=== PATIENT | male | born 1940 | race Two or more races ===

== ENCOUNTER → 2019-09-10 | Emergency (ER) | payer MEDICARE, OTHER ==
[~2019-09-10] VITALS: Ht 185.4 cm; Wt 63.5 kg
[~2019-09-10] MED LIST: CALCIUM GLUC 4.65meq/50ml D5AE 50 ML IV ONE; CALCIUM W/VIT D (600MG/400IU) TAB PO ONE; CALCIUM W/VIT D (600MG/400IU) TAB PO SCH; CEL100T PO; CLIN300C8 PO; ERGO1CAP6 PO; ESOM40CA39 PO; LEVO500T21 PO; LOSA-69 PO; TAM04C PO
[2019-09-10 11:54] LABS: Basophils # (auto) 0 10 ^3/uL (0-0.2); Basophils % (auto) 0.4 % (0.0-2.0); Eosinophils # (auto) 0.1 10 ^3/uL (0-0.8); Eosinophils % (auto) 1.8 % (0.0-7.0); Hematocrit 40.9 % (41.0-53.0); Hemoglobin 13.3 g/dL (13.5-17.5); Lymphocytes # (auto) 0.8 10 ^3/uL (0.4-5.4); Lymphocytes % (auto) 10.7 % (10.0-50.0); Mean Corpuscular Hgb Conc. 32.5 g/dL (32.0-36.0); Monocytes # (auto) 1.1 10 ^3/uL (0-1.3); Monocytes % (auto) 14.3 % (0.0-12.0); Neutrophils # (auto) 5.4 10 ^3/uL (1.6-8.6); Neutrophils % (auto) 72.8 % (37.0-80.0); Platelet Count (auto) 209 10^3/uL (140-450); Red Blood Cells 4.76 10^6/uL (4.5-5.90); Red Cell Distribution Width 14.3 % (11.8-14.3); White Blood Cell 7.4 10^3/uL (4.4-10.8)
[2019-09-10 12:14] LABS: Calcium 8.2 mg/dL (8.5-10.1); Potassium 4.1 mmol/L (3.5-5.1)
[2019-09-10 12:17] LABS: Albumin 3.7 g/dL (3.4-5.0); BUN/Creatinine Ratio 17.9
[2019-09-10 12:20] LABS: Bilirubin, Total 0.6 mg/dL (0.2-1.0); Total Protein 7.4 g/dL (6.4-8.2)
[2019-09-10 13:50] VITALS: BP 109/72
== END | disposition home or self-care (01) ==
LOC: EDUNIT# 11:19 → EDBD 11:22 → ER 11:22
DX: R07.0 Pain in throat (principal); I10 Essential (primary) hypertension; E11.9 Type 2 diabetes mellitus without complications; E78.5 Hyperlipidemia, unspecified; K21.9 Gastro-esophageal reflux disease without esophagitis; Z79.2 Long term (current) use of antibiotics; Z79.899 Other long term (current) drug therapy
CPT/HCPCS: 36415; 70490; 71045; 80053; 85025; 96365; 99285; J0610

== ENCOUNTER 2021-03-26 16:42 | Emergency (ER) | payer MEDICARE, OTHER ==
[~2021-03-26] VITALS: Ht 165.1 cm; Wt 56.7 kg
[~2021-03-26 16:42] MED LIST changes: -CALCIUM GLUC 4.65meq/50ml D5AE 50 ML IV ONE; -CALCIUM W/VIT D (600MG/400IU) TAB PO ONE; -CALCIUM W/VIT D (600MG/400IU) TAB PO SCH; -LEVO500T21 PO; +LEVO500T31 PO
[2021-03-26 17:39] VITALS: BP 123/67
== END 2021-03-26 18:13 | disposition home or self-care (01) ==
LOC: ER 16:42
DX: H65.02 Acute serous otitis media, left ear (principal); H61.21 Impacted cerumen, right ear; E11.9 Type 2 diabetes mellitus without complications; K21.9 Gastro-esophageal reflux disease without esophagitis; E78.5 Hyperlipidemia, unspecified; I10 Essential (primary) hypertension; Z85.818 Personal history of malignant neoplasm of other sites of lip, oral cavity, and pharynx; Z79.2 Long term (current) use of antibiotics; Z79.899 Other long term (current) drug therapy

== ENCOUNTER 2021-04-08 16:00 | Emergency (ER) | payer MEDICARE, OTHER ==
[~2021-04-08] VITALS: Ht 175.3 cm; Wt 72.6 kg
[2021-04-08 17:54] LABS: Basophils # (auto) 0.1 10 ^3/uL (0-0.2); Eosinophils # (auto) 0 10 ^3/uL (0-0.8)
[2021-04-08 17:56] LABS: Basophils % (auto) 0.3 % (0.0-2.0); Eosinophils % (auto) 0.1 % (0.0-7.0); Hematocrit 37.9 % (41.0-53.0); Lymphocytes # (auto) 0.6 10 ^3/uL (0.4-5.4); Lymphocytes % (auto) 3.5 % (10.0-50.0); Mean Corpuscular Hemoglobin 26.3 pg (28.0-32.0); Mean Corpuscular Hgb Conc. 31.8 g/dL (32.0-36.0); Mean Corpuscular Volume 82.9 fL (80.0-100.0); Monocytes # (auto) 1.3 10 ^3/uL (0-1.3); Monocytes % (auto) 7.1 % (0.0-12.0); Neutrophils # (auto) 16.1 10 ^3/uL (1.6-8.6); Nucleated Red Blood Cells % 0.1 %; Red Blood Cells 4.57 10^6/uL (4.5-5.90); White Blood Cell 18.1 10^3/uL (4.4-10.8)
[2021-04-08 18:07] LABS: Albumin 3.2 g/dL (3.4-5.0); Calcium 10.1 mg/dL (8.5-10.1); Potassium 5.1 mmol/L (3.5-5.1)
[2021-04-08 18:17] LABS: BUN/Creatinine Ratio 17.2; Bilirubin, Total 0.5 mg/dL (0.2-1.0); Total Protein 7.7 g/dL (6.4-8.2)
[2021-04-08 19:05] VITALS: BP 132/69
== END 2021-04-08 19:55 | disposition home or self-care (01) ==
LOC: ER 16:00
DX: R07.0 Pain in throat (principal); I10 Essential (primary) hypertension; E11.9 Type 2 diabetes mellitus without complications; K21.9 Gastro-esophageal reflux disease without esophagitis; E78.5 Hyperlipidemia, unspecified; Z85.818 Personal history of malignant neoplasm of other sites of lip, oral cavity, and pharynx; Z79.2 Long term (current) use of antibiotics; Z79.899 Other long term (current) drug therapy
CPT/HCPCS: 36415; 71045; 80053; 84484; 85025

== ENCOUNTER 2021-04-23 14:03 | Inpatient (IN) | payer MEDICARE, OTHER ==
[~2021-04-23] VITALS: Ht 152.4 cm; Wt 51.0 kg
[2021-04-23] MEDS ORDERED: SODIUM CHLORIDE 0.9% 500 ML IV ONE (14:45)
[2021-04-24] LABS: Basophils # (auto) 0.1 10 ^3/uL (0-0.2); Hematocrit 35.3 % (41.0-53.0); Hemoglobin 11.2 g/dL (13.5-17.5); Monocytes # (auto) 1.1 10 ^3/uL (0-1.3); Red Cell Distribution Width 15.5 % (11.8-14.3); White Blood Cell 15.6 10^3/uL (4.4-10.8)
[2021-04-24 00:02] LABS: Basophils % (auto) 0.6 % (0.0-2.0); Eosinophils # (auto) 0.6 10 ^3/uL (0-0.8); Eosinophils % (auto) 4.1 % (0.0-7.0); Lymphocytes % (auto) 6.6 % (10.0-50.0); Mean Corpuscular Hemoglobin 26.3 pg (28.0-32.0); Mean Corpuscular Hgb Conc. 31.8 g/dL (32.0-36.0); Mean Corpuscular Volume 82.9 fL (80.0-100.0); Monocytes % (auto) 7.1 % (0.0-12.0); Neutrophils # (auto) 12.7 10 ^3/uL (1.6-8.6); Neutrophils % (auto) 81.6 % (37.0-80.0); Red Blood Cells 4.25 10^6/uL (4.5-5.90)
[2021-04-24 00:19] LABS: Albumin 2.9 g/dL (3.4-5.0); Potassium 4.1 mmol/L (3.5-5.1)
[2021-04-24 00:26] LABS: Bilirubin, Total 0.4 mg/dL (0.2-1.0)
[2021-04-24] MEDS ORDERED: DOCUSATE SOD 100 MG CAP PO PRN (01:30)
[2021-04-24] MEDS ORDERED: cefTRIAXone 1GM/50ML D5W 50 ML IV ONE (01:30)
[2021-04-24] MEDS ORDERED: DEXTROSE (50%) 50ML SYRG IV PRN (01:30)
[2021-04-24] MEDS ORDERED: hydrALAZINE HCL 20 MG/ML VL IV PRN (01:45)
[2021-04-24] MEDS: SODIUM CHLORIDE 0.9% 1,000 ML IV SCH ×2 (02:09→18:25)
[2021-04-24 03:42] LABS: Urine Bacteria FEW /hpf (None Seen); Urine Blood Negative /uL (Negative); Urine Hyaline Cast FEW /lpf (0 - 2); Urine Mucus FEW (None Seen); Urine WBC 3 /hpf (0 - 3)
[2021-04-24 05:09] LABS: Basophils # (auto) 0.1 10 ^3/uL (0-0.2); Eosinophils # (auto) 0.6 10 ^3/uL (0-0.8); Lymphocytes # (auto) 0.8 10 ^3/uL (0.4-5.4); Mean Corpuscular Volume 82.7 fL (80.0-100.0); Monocytes # (auto) 0.9 10 ^3/uL (0-1.3)
[2021-04-24 05:11] LABS: Basophils % (auto) 0.5 % (0.0-2.0); Eosinophils % (auto) 3.6 % (0.0-7.0); Hematocrit 36.4 % (41.0-53.0); Hemoglobin 11.6 g/dL (13.5-17.5); Lymphocytes % (auto) 5.4 % (10.0-50.0); Mean Corpuscular Hemoglobin 26.3 pg (28.0-32.0); Mean Corpuscular Hgb Conc. 31.8 g/dL (32.0-36.0); Monocytes % (auto) 5.6 % (0.0-12.0); Neutrophils # (auto) 13.2 10 ^3/uL (1.6-8.6); Neutrophils % (auto) 84.9 % (37.0-80.0); Red Blood Cells 4.41 10^6/uL (4.5-5.90); Red Cell Distribution Width 15.3 % (11.8-14.3); White Blood Cell 15.5 10^3/uL (4.4-10.8)
[2021-04-24] MEDS ORDERED: NITROGLYCERIN 0.4 MG SL TAB SL PRN (05:30)
[2021-04-24 05:32] LABS: Albumin 2.9 g/dL (3.4-5.0); BUN/Creatinine Ratio 37.1; Calcium 10.4 mg/dL (8.5-10.1)
[2021-04-24 05:35] LABS: Bilirubin, Total 0.3 mg/dL (0.2-1.0); Total Protein 7.2 g/dL (6.4-8.2)
[2021-04-24] MEDS: HYDROcodone-ACET 5/325MG TAB PO PRN (06:20)
[2021-04-24] MEDS: InsuLIN REG 1unit/0.01ml Soln (100units/ml) SC SCH ×3 (07:00→17:00)
[2021-04-24] MEDS: ACCU-CHEK COMFORT CURVE STRIP VI SCH ×3 (07:29→17:46)
[2021-04-24] MEDS: cefTRIAXone 1GM/50ML D5W 50 ML IV SCH (12:26)
[2021-04-24] MEDS: HEPARIN SODIUM (PORCINE) 5000 UNITS/ML 1ML VIAL SC SCH ×2 (12:34→22:22)
[2021-04-24] MEDS: FAMOTIDINE (10MG/ML) 2ML VL IV SCH (12:35)
[2021-04-24] MEDS: ASCORBIC ACID 500 MG TAB PO SCH ×2 (12:35→22:06)
[2021-04-24] MEDS: ZINC SULFATE 220mg CAP or TAB PO SCH (12:35)
[2021-04-24] MEDS: ASPirin 81 mg TAB PO SCH (12:35)
[2021-04-24] MEDS: MULTIPLE VITAMIN TAB PO SCH (12:36)
[2021-04-24] MEDS ORDERED: CLINDAMYCIN 300MG IV 50 ML IV ONE (14:45)
[2021-04-24 17:00] VITALS: BP 112/62
[2021-04-24 22:00] VITALS: BP 107/66
[2021-04-24] MEDS: CLINDAMYCIN 300MG IV 50 ML IV SCH (22:06)
[2021-04-24] MEDS: ACETAMINOPHEN 325 MG TAB PO PRN (22:25)
[2021-04-25 05:00] VITALS: BP 102/68
[2021-04-25] MEDS: CLINDAMYCIN 300MG IV 50 ML IV SCH ×3 (06:53→21:04)
[2021-04-25] MEDS: InsuLIN REG 1unit/0.01ml Soln (100units/ml) SC SCH ×4 (07:00→21:14)
[2021-04-25 07:21] LABS: Basophils # (auto) 0.1 10 ^3/uL (0-0.2); Eosinophils # (auto) 0.6 10 ^3/uL (0-0.8); Hemoglobin 10.1 g/dL (13.5-17.5)
[2021-04-25 07:23] LABS: Basophils % (auto) 0.8 % (0.0-2.0); Eosinophils % (auto) 4.4 % (0.0-7.0); Lymphocytes # (auto) 0.8 10 ^3/uL (0.4-5.4); Mean Corpuscular Hgb Conc. 32.5 g/dL (32.0-36.0); Mean Corpuscular Volume 82.9 fL (80.0-100.0); Monocytes % (auto) 7.6 % (0.0-12.0); Neutrophils % (auto) 81.2 % (37.0-80.0); Red Blood Cells 3.74 10^6/uL (4.5-5.90); Red Cell Distribution Width 15.8 % (11.8-14.3); White Blood Cell 13.5 10^3/uL (4.4-10.8)
[2021-04-25 07:29] LABS: Albumin 2.3 g/dL (3.4-5.0); Calcium 9.8 mg/dL (8.5-10.1); Potassium 4.4 mmol/L (3.5-5.1)
[2021-04-25 07:34] LABS: Bilirubin, Total 0.4 mg/dL (0.2-1.0)
[2021-04-25 08:00] VITALS: BP 134/72
[2021-04-25 09:00] VITALS: BP 134/72
[2021-04-25] MEDS: FAMOTIDINE (10MG/ML) 2ML VL IV SCH (09:02)
[2021-04-25] MEDS: cefTRIAXone 1GM/50ML D5W 50 ML IV SCH (09:02)
[2021-04-25] MEDS: ASCORBIC ACID 500 MG TAB PO SCH ×2 (09:03→21:04)
[2021-04-25] MEDS: ZINC SULFATE 220mg CAP or TAB PO SCH (09:03)
[2021-04-25] MEDS: MULTIPLE VITAMIN TAB PO SCH (09:03)
[2021-04-25] MEDS: ASPirin 81 mg TAB PO SCH (09:03)
[2021-04-25] MEDS: HEPARIN SODIUM (PORCINE) 5000 UNITS/ML 1ML VIAL SC SCH (09:04)
[2021-04-25] MEDS: ACCU-CHEK COMFORT CURVE STRIP VI SCH ×4 (09:24→21:13)
[2021-04-25 13:00] VITALS: BP 129/68
[2021-04-25 17:00] VITALS: BP 125/70
[2021-04-25] MEDS: SODIUM CHLORIDE 0.9% 1,000 ML IV SCH (18:28)
[2021-04-25] MEDS: MORPHINE SULFATE INJECTION 2 MG/ML SYRG IV PRN (21:03)
[2021-04-25 22:00] VITALS: BP 140/86
[2021-04-26] MEDS: HEPARIN SODIUM (PORCINE) 5000 UNITS/ML 1ML VIAL SC SCH ×3 (02:43→23:02)
[2021-04-26] MEDS: SODIUM CHLORIDE 0.9% 1,000 ML IV SCH ×3 (03:30→20:10)
[2021-04-26 05:00] VITALS: BP 131/83
[2021-04-26] MEDS: HYDROcodone-ACET 5/325MG TAB PO PRN (06:02)
[2021-04-26] MEDS: InsuLIN REG 1unit/0.01ml Soln (100units/ml) SC SCH ×3 (06:03→17:00)
[2021-04-26] MEDS: CLINDAMYCIN 300MG IV 50 ML IV SCH ×3 (06:12→23:02)
[2021-04-26 07:20] LABS: Basophils # (auto) 0.1 10 ^3/uL (0-0.2); Basophils % (auto) 0.5 % (0.0-2.0); Hematocrit 31.5 % (41.0-53.0); Hemoglobin 10.2 g/dL (13.5-17.5); Neutrophils # (auto) 12.7 10 ^3/uL (1.6-8.6)
[2021-04-26 07:24] LABS: Eosinophils # (auto) 0.4 10 ^3/uL (0-0.8); Eosinophils % (auto) 2.9 % (0.0-7.0); Lymphocytes # (auto) 0.7 10 ^3/uL (0.4-5.4); Lymphocytes % (auto) 4.8 % (10.0-50.0); Mean Corpuscular Hemoglobin 26.7 pg (28.0-32.0); Mean Corpuscular Hgb Conc. 32.3 g/dL (32.0-36.0); Mean Corpuscular Volume 82.7 fL (80.0-100.0); Monocytes # (auto) 1.2 10 ^3/uL (0-1.3); Monocytes % (auto) 7.7 % (0.0-12.0); Neutrophils % (auto) 84.1 % (37.0-80.0); Red Cell Distribution Width 15.1 % (11.8-14.3); White Blood Cell 15.1 10^3/uL (4.4-10.8)
[2021-04-26 07:35] LABS: Calcium 9.8 mg/dL (8.5-10.1); Potassium 4.1 mmol/L (3.5-5.1)
[2021-04-26 07:37] LABS: BUN/Creatinine Ratio 19.5
[2021-04-26 09:00] VITALS: BP 90/51
[2021-04-26] MEDS: cefTRIAXone 1GM/50ML D5W 50 ML IV SCH (09:00)
[2021-04-26] MEDS: MULTIPLE VITAMIN TAB PO SCH (10:00)
[2021-04-26] MEDS: ZINC SULFATE 220mg CAP or TAB PO SCH (10:00)
[2021-04-26] MEDS: FAMOTIDINE (10MG/ML) 2ML VL IV SCH (10:00)
[2021-04-26] MEDS: ASCORBIC ACID 500 MG TAB PO SCH (10:00)
[2021-04-26] MEDS: ASPirin 81 mg TAB PO SCH (10:00)
[2021-04-26] MEDS ORDERED: PPN PER PHARMACY 0 ML IV SCH (11:30)
[2021-04-26] MEDS: ACCU-CHEK COMFORT CURVE STRIP VI SCH ×5 (11:30→23:21)
[2021-04-26 12:20] LABS: Albumin 2.2 g/dL (3.4-5.0); Magnesium 1.8 mg/dL (1.6-2.6)
[2021-04-26 12:26] LABS: Alanine Aminotransferase 14 U/L (16-61); Alkaline Phosphatase 91 U/L (45-117); Aspartate Aminotransferase 19 U/L (15-37); Bilirubin, Direct < 0.1 mg/dL (0-0.2); Bilirubin, Total 0.3 mg/dL (0.2-1.0); Phosphorus 2.8 mg/dL (2.5-4.90); Pre Albumin 7.4 mg/dL (20.0-40.0); Triglycerides 89 mg/dL (< 150)
[2021-04-26 12:30] LABS: INR 1.1 (0.9-1.15); Partial Thromboplastin Time 27.4 sec (23.6-33.0)
[2021-04-26 13:00] VITALS: BP 124/72
[2021-04-26 17:00] VITALS: BP 92/54
[2021-04-26] MEDS ORDERED: PPN PER PHARMACY IV NR ×8 (20:00)
[2021-04-26 22:00] VITALS: BP 93/51
[2021-04-26] MEDS: ACETAMINOPHEN 325 MG TAB PO PRN (23:20)
[2021-04-27] MEDS ORDERED: DEXTROSE (50%) 50ML SYRG IV SCH
[2021-04-27] MEDS: InsuLIN REG 1unit/0.01ml Soln (100units/ml) SC SCH ×6 (00:50→23:44)
[2021-04-27 05:00] VITALS: BP 112/52
[2021-04-27] MEDS: ACCU-CHEK COMFORT CURVE STRIP VI SCH ×4 (05:56→23:44)
[2021-04-27] MEDS: CLINDAMYCIN 300MG IV 50 ML IV SCH ×3 (06:30→21:11)
[2021-04-27 06:56] LABS: Albumin 2.2 g/dL (3.4-5.0); Calcium 9.9 mg/dL (8.5-10.1); Magnesium 2.6 mg/dL (1.6-2.6); Potassium 3.9 mmol/L (3.5-5.1)
[2021-04-27 06:58] LABS: BUN/Creatinine Ratio 15.4; Bilirubin, Total 0.4 mg/dL (0.2-1.0); Phosphorus 1.9 mg/dL (2.5-4.90); Total Protein 5.9 g/dL (6.4-8.2)
[2021-04-27 09:04] VITALS: BP 132/70
[2021-04-27] MEDS ORDERED: SODIUM PHOSP 20MEQ(15MMOL) IN NS 100 ML IV ONE (10:45)
[2021-04-27] MEDS: FAMOTIDINE (10MG/ML) 2ML VL IV SCH (11:08)
[2021-04-27] MEDS: cefTRIAXone 1GM/50ML D5W 50 ML IV SCH (11:08)
[2021-04-27] MEDS: HEPARIN SODIUM (PORCINE) 5000 UNITS/ML 1ML VIAL SC SCH ×2 (11:11→21:12)
[2021-04-27] MEDS ORDERED: MIDAZOLAM HCL 2MG/2ML 2ml VIAL (1mg/ml) IV ONE (12:30)
[2021-04-27] MEDS ORDERED: fentaNYL CITRATE 100 MCG/2 ML VL IV ONE (12:30)
[2021-04-27] MEDS: SODIUM CHLORIDE 0.9% 1,000 ML IV SCH ×2 (12:50→21:07)
[2021-04-27 12:55] VITALS: BP 100/63
[2021-04-27 16:29] VITALS: BP 123/64
[2021-04-27] MEDS ORDERED: PPN PER PHARMACY IV NR ×7 (20:00)
[2021-04-27 22:00] VITALS: BP 130/74
[2021-04-28 05:00] VITALS: BP 155/83
[2021-04-28] MEDS: CLINDAMYCIN 300MG IV 50 ML IV SCH ×3 (05:15→21:24)
[2021-04-28] MEDS: ACCU-CHEK COMFORT CURVE STRIP VI SCH ×3 (05:21→18:13)
[2021-04-28] MEDS: InsuLIN REG 1unit/0.01ml Soln (100units/ml) SC SCH ×3 (05:23→18:13)
[2021-04-28 06:54] LABS: Basophils # (auto) 0.1 10 ^3/uL (0-0.2); Basophils % (auto) 0.3 % (0.0-2.0); Eosinophils # (auto) 0.2 10 ^3/uL (0-0.8); Eosinophils % (auto) 1.1 % (0.0-7.0); Hematocrit 30.5 % (41.0-53.0); Hemoglobin 10.2 g/dL (13.5-17.5); Lymphocytes # (auto) 0.9 10 ^3/uL (0.4-5.4); Lymphocytes % (auto) 5.4 % (10.0-50.0); Mean Corpuscular Hemoglobin 27.4 pg (28.0-32.0); Mean Corpuscular Hgb Conc. 33.4 g/dL (32.0-36.0); Monocytes # (auto) 1.6 10 ^3/uL (0-1.3); Monocytes % (auto) 9.8 % (0.0-12.0); Neutrophils # (auto) 13.4 10 ^3/uL (1.6-8.6); Neutrophils % (auto) 83.4 % (37.0-80.0); Nucleated Red Blood Cells % 0.1 %; Red Blood Cells 3.72 10^6/uL (4.5-5.90); Red Cell Distribution Width 15.2 % (11.8-14.3)
[2021-04-28 07:15] LABS: Calcium 8.7 mg/dL (8.5-10.1); Magnesium 2.3 mg/dL (1.6-2.6); Potassium 3.3 mmol/L (3.5-5.1)
[2021-04-28 07:19] LABS: BUN/Creatinine Ratio 14.1; Bilirubin, Total 0.4 mg/dL (0.2-1.0); Phosphorus 1.8 mg/dL (2.5-4.90); Total Protein 5.8 g/dL (6.4-8.2)
[2021-04-28] MEDS ORDERED: POTASSIUM PHOSPHATE 44 MEQ in D5W 5% 250 ML IV ONE (08:45)
[2021-04-28 09:20] VITALS: BP 113/71
[2021-04-28] MEDS: FAMOTIDINE (10MG/ML) 2ML VL IV SCH (09:33)
[2021-04-28] MEDS: cefTRIAXone 1GM/50ML D5W 50 ML IV SCH (09:34)
[2021-04-28] MEDS: HEPARIN SODIUM (PORCINE) 5000 UNITS/ML 1ML VIAL SC SCH ×2 (09:37→21:24)
[2021-04-28] MEDS ORDERED: levoFLOXacin 500MG 100 ML IV ONE (11:00)
[2021-04-28] MEDS ORDERED: POTASSIUM CHLORIDE 40 MEQ, LIDOCAINE 1% (LOCAL ANESTH.) 4 ML in SODIUM CHL 0.9% 250 ML IV ONE (11:00)
[2021-04-28] MEDS: ONDANSETRON HCL 4 MG/2 ML VIAL IV PRN (11:37)
[2021-04-28 13:00] VITALS: BP 136/75
[2021-04-28] MEDS: SODIUM CHLORIDE 0.9% 1,000 ML IV SCH (16:16)
[2021-04-28] MEDS: MORPHINE SULFATE INJECTION 2 MG/ML SYRG IV PRN (16:22)
[2021-04-28 17:06] VITALS: BP 106/57
[2021-04-28 17:27] VITALS: BP 107/57
[2021-04-28] MEDS ORDERED: SODIUM CHLORIDE 0.9% 1,000 ML IV SCH (20:00)
[2021-04-28] MEDS ORDERED: PPN PER PHARMACY IV NR ×9 (20:00)
[2021-04-28 22:00] VITALS: BP 101/58
[2021-04-29] MEDS: InsuLIN REG 1unit/0.01ml Soln (100units/ml) SC SCH ×4 (01:01→18:17)
[2021-04-29 05:00] VITALS: BP 103/54
[2021-04-29 05:15] LABS: Basophils # (auto) 0 10 ^3/uL (0-0.2); Basophils % (auto) 0.3 % (0.0-2.0); Eosinophils # (auto) 0.3 10 ^3/uL (0-0.8); Eosinophils % (auto) 2.2 % (0.0-7.0); Hematocrit 29.3 % (41.0-53.0); Hemoglobin 9.8 g/dL (13.5-17.5); Lymphocytes # (auto) 0.7 10 ^3/uL (0.4-5.4); Lymphocytes % (auto) 4.7 % (10.0-50.0); Mean Corpuscular Hemoglobin 27.3 pg (28.0-32.0); Mean Corpuscular Hgb Conc. 33.5 g/dL (32.0-36.0); Mean Corpuscular Volume 81.4 fL (80.0-100.0); Monocytes # (auto) 1.4 10 ^3/uL (0-1.3); Neutrophils # (auto) 12.8 10 ^3/uL (1.6-8.6); Neutrophils % (auto) 83.8 % (37.0-80.0); Red Blood Cells 3.59 10^6/uL (4.5-5.90); Red Cell Distribution Width 15.5 % (11.8-14.3); White Blood Cell 15.3 10^3/uL (4.4-10.8)
[2021-04-29] MEDS: CLINDAMYCIN 300MG IV 50 ML IV SCH ×3 (05:20→21:55)
[2021-04-29 05:39] LABS: INR 1.23 (0.9-1.15); Partial Thromboplastin Time 32.1 sec (23.6-33.0)
[2021-04-29 05:56] LABS: Albumin 1.9 g/dL (3.4-5.0); BUN/Creatinine Ratio 20.3; Bilirubin, Total 0.4 mg/dL (0.2-1.0); Calcium 8.9 mg/dL (8.5-10.1); Magnesium 2.4 mg/dL (1.6-2.6); Phosphorus 2.4 mg/dL (2.5-4.90); Total Protein 6.1 g/dL (6.4-8.2)
[2021-04-29] MEDS: ACCU-CHEK COMFORT CURVE STRIP VI SCH ×4 (06:00→18:18)
[2021-04-29 07:24] LABS: Potassium 2.9 mmol/L (3.5-5.1)
[2021-04-29] MEDS: SOD CHL 0.9%/ KCL 20MEQ 1,000 ML IV SCH (08:15)
[2021-04-29 08:38] VITALS: BP 122/72
[2021-04-29] MEDS ORDERED: POTASSIUM PHOSPHATE 44 MEQ in D5W 5% 250 ML IV ONE (09:30)
[2021-04-29] MEDS: FAMOTIDINE (10MG/ML) 2ML VL IV SCH (10:00)
[2021-04-29] MEDS: HEPARIN SODIUM (PORCINE) 5000 UNITS/ML 1ML VIAL SC SCH ×2 (10:00→21:53)
[2021-04-29] MEDS: levoFLOXacin 500MG 100 ML IV SCH (10:00)
[2021-04-29] MEDS ORDERED: LIDOCAINE 2%HCL (LOCAL ANESTH.) INJ 20ML MDV ONE (10:02)
[2021-04-29] MEDS ORDERED: MIDAZOLAM HCL 2MG/2ML 2ml VIAL (1mg/ml) ONE (10:09)
[2021-04-29] MEDS ORDERED: fentaNYL CITRATE 100 MCG/2 ML VL ONE (10:10)
[2021-04-29] MEDS ORDERED: POTASSIUM CHLORIDE 60 MEQ, LIDOCAINE 1% (LOCAL ANESTH.) 6 ML in SODIUM CHL 0.9% 500 ML IV ONE (10:45)
[2021-04-29] MEDS: Ensure HIGH Protein Chocolate 8oz Bottle PO SCH ×2 (11:51→14:52)
[2021-04-29] MEDS ORDERED: Ensure HIGH Protein Chocolate 8oz Bottle PO SCH (12:00)
[2021-04-29 13:00] VITALS: BP 105/53
[2021-04-29 17:00] VITALS: BP 107/58
[2021-04-29] MEDS: Glucerna Carbsteady SHAKE Stawberry 8oz PO SCH (18:17)
[2021-04-29] MEDS ORDERED: PPN PER PHARMACY IV NR ×8 (20:00)
[2021-04-29 22:00] VITALS: BP 140/66
[2021-04-29] MEDS: ACETAMINOPHEN 650 mg PER 20.3 mL UD GT PRN (22:14)
[2021-04-30] MEDS: ACCU-CHEK COMFORT CURVE STRIP VI SCH ×4 (00:04→18:00)
[2021-04-30] MEDS: InsuLIN REG 1unit/0.01ml Soln (100units/ml) SC SCH ×4 (00:12→18:00)
[2021-04-30] MEDS: SOD CHL 0.9%/ KCL 20MEQ 1,000 ML IV SCH ×2 (04:15→20:35)
[2021-04-30 05:00] VITALS: BP 141/74
[2021-04-30] MEDS: CLINDAMYCIN 300MG IV 50 ML IV SCH (05:47)
[2021-04-30 05:50] LABS: Calcium 8.7 mg/dL (8.5-10.1); Potassium 3.6 mmol/L (3.5-5.1)
[2021-04-30 06:01] LABS: Albumin 1.7 g/dL (3.4-5.0); BUN/Creatinine Ratio 26.9; Bilirubin, Total 0.4 mg/dL (0.2-1.0); Magnesium 1.8 mg/dL (1.6-2.6); Phosphorus 2.1 mg/dL (2.5-4.90); Total Protein 5.4 g/dL (6.4-8.2)
[2021-04-30] MEDS: Glucerna Carbsteady SHAKE Stawberry 8oz PO SCH ×3 (08:00→18:00)
[2021-04-30 09:00] VITALS: BP 149/76
[2021-04-30] MEDS: HEPARIN SODIUM (PORCINE) 5000 UNITS/ML 1ML VIAL SC SCH ×2 (10:00→22:46)
[2021-04-30] MEDS: levoFLOXacin 500MG 100 ML IV SCH (10:00)
[2021-04-30] MEDS: FAMOTIDINE (10MG/ML) 2ML VL IV SCH (10:00)
[2021-04-30] MEDS ORDERED: POTASSIUM PHOSPHATE 44 MEQ in D5W 5% 250 ML IV ONE (11:00)
[2021-04-30] MEDS ORDERED: POTASSIUM PHOSPHATE 22 MEQ in SODIUM CHL 0.9% 100 ML IV ONE (11:00)
[2021-04-30] MEDS: ACETAMINOPHEN 650 mg PER 20.3 mL UD GT PRN (12:17)
[2021-04-30 13:00] VITALS: BP 116/64
[2021-04-30 16:50] VITALS: BP 104/60
[2021-04-30] MEDS ORDERED: PPN PER PHARMACY IV NR ×7 (20:00)
[2021-04-30] MEDS ORDERED: HEPARIN SODIUM (PORCINE) 5000 UNITS/ML 1ML VIAL ONE (20:39)
[2021-04-30 22:04] VITALS: BP 107/75
[2021-05-01] MEDS: ACCU-CHEK COMFORT CURVE STRIP VI SCH ×5 (00:20→22:19)
[2021-05-01] MEDS: InsuLIN REG 1unit/0.01ml Soln (100units/ml) SC SCH ×4 (01:25→16:58)
[2021-05-01 05:01] VITALS: BP 142/85
[2021-05-01] MEDS: Glucerna Carbsteady SHAKE Stawberry 8oz PO SCH ×3 (08:00→16:58)
[2021-05-01 09:00] VITALS: BP 148/74
[2021-05-01] MEDS: levoFLOXacin 500MG 100 ML IV SCH (09:57)
[2021-05-01] MEDS: FAMOTIDINE (10MG/ML) 2ML VL IV SCH (09:57)
[2021-05-01 10:11] LABS: Albumin 2.2 g/dL (3.4-5.0); Calcium 9.5 mg/dL (8.5-10.1); Magnesium 2.4 mg/dL (1.6-2.6); Potassium 3.2 mmol/L (3.5-5.1)
[2021-05-01] MEDS: HEPARIN SODIUM (PORCINE) 5000 UNITS/ML 1ML VIAL SC SCH ×2 (10:14→22:19)
[2021-05-01 10:15] LABS: BUN/Creatinine Ratio 19.7; Bilirubin, Total 0.5 mg/dL (0.2-1.0); Phosphorus 2.2 mg/dL (2.5-4.90); Total Protein 6.4 g/dL (6.4-8.2)
[2021-05-01] MEDS ORDERED: POTASSIUM PHOSPHATE 44 MEQ in D5W 5% 250 ML IV ONE (11:00)
[2021-05-01 13:00] VITALS: BP 113/61
[2021-05-01 17:00] VITALS: BP 108/60
[2021-05-01] MEDS: ALBUTEROL SULF 2.5 MG/0.5ML(0.5%) NEB SOLN NEB SCH (18:56)
[2021-05-01] MEDS: ACETYLCYSTEINE 10 %(100MG/ML) SOL 4ML NEB SCH ×2 (18:57→18:58)
[2021-05-01 20:00] VITALS: BP 117/71
[2021-05-01] MEDS ORDERED: PPN PER PHARMACY IV NR ×8 (20:00)
[2021-05-01] MEDS: SOD CHL 0.9%/ KCL 20MEQ 1,000 ML IV SCH (22:17)
[2021-05-02] MEDS: ACETYLCYSTEINE 10 %(100MG/ML) SOL 4ML NEB SCH ×4 (01:10→19:02)
[2021-05-02] MEDS: ALBUTEROL SULF 2.5 MG/0.5ML(0.5%) NEB SOLN NEB SCH ×4 (01:10→19:02)
[2021-05-02 05:20] VITALS: BP 135/88
[2021-05-02 05:48] LABS: Albumin 1.9 g/dL (3.4-5.0); BUN/Creatinine Ratio 18.6; Calcium 9.4 mg/dL (8.5-10.1); Magnesium 1.9 mg/dL (1.6-2.6); Potassium 3.4 mmol/L (3.5-5.1)
[2021-05-02 05:51] LABS: Bilirubin, Total 0.4 mg/dL (0.2-1.0); Total Protein 6.2 g/dL (6.4-8.2)
[2021-05-02] MEDS: ACCU-CHEK COMFORT CURVE STRIP VI SCH ×4 (06:15→23:40)
[2021-05-02] MEDS: InsuLIN REG 1unit/0.01ml Soln (100units/ml) SC SCH ×5 (06:41→23:43)
[2021-05-02] MEDS: Glucerna Carbsteady SHAKE Stawberry 8oz PO SCH ×3 (08:00→16:34)
[2021-05-02 09:00] VITALS: BP 156/81
[2021-05-02] MEDS: FAMOTIDINE (10MG/ML) 2ML VL IV SCH (09:30)
[2021-05-02] MEDS: levoFLOXacin 500MG 100 ML IV SCH (09:30)
[2021-05-02] MEDS: HEPARIN SODIUM (PORCINE) 5000 UNITS/ML 1ML VIAL SC SCH ×2 (09:54→21:29)
[2021-05-02] MEDS ORDERED: POTASSIUM PHOSPHATE 44 MEQ in D5W 5% 250 ML IV ONE (11:30)
[2021-05-02 11:45] VITALS: BP 123/56
[2021-05-02] MEDS: ACETAMINOPHEN 650 mg PER 20.3 mL UD GT PRN (13:35)
[2021-05-02 16:35] VITALS: BP 93/51
[2021-05-02] MEDS: MORPHINE SULFATE INJECTION 2 MG/ML SYRG IV PRN ×2 (16:45→21:56)
[2021-05-02] MEDS: PPN PER PHARMACY IV NR ×8 (20:54)
[2021-05-02 22:00] VITALS: BP 101/66
[2021-05-02] MEDS: SOD CHL 0.9%/ KCL 20MEQ 1,000 ML IV SCH (23:35)
[2021-05-03] MEDS: ALBUTEROL SULF 2.5 MG/0.5ML(0.5%) NEB SOLN NEB SCH ×4 (00:31→18:50)
[2021-05-03] MEDS: MORPHINE SULFATE INJECTION 2 MG/ML SYRG IV PRN ×2 (03:34→10:34)
[2021-05-03 04:12] VITALS: BP 132/72
[2021-05-03] MEDS: ACETAMINOPHEN 650 mg PER 20.3 mL UD GT PRN ×3 (04:55→21:57)
[2021-05-03] MEDS: ACETYLCYSTEINE 10 %(100MG/ML) SOL 4ML NEB SCH ×4 (06:00→18:50)
[2021-05-03] MEDS: InsuLIN REG 1unit/0.01ml Soln (100units/ml) SC SCH ×4 (06:00→23:36)
[2021-05-03 06:03] LABS: Potassium 4.2 mmol/L (3.5-5.1)
[2021-05-03] MEDS: ACCU-CHEK COMFORT CURVE STRIP VI SCH ×4 (06:04→23:36)
[2021-05-03 06:12] LABS: BUN/Creatinine Ratio 27.3; Bilirubin, Total 0.4 mg/dL (0.2-1.0); Magnesium 2.8 mg/dL (1.6-2.6); Phosphorus 3.2 mg/dL (2.5-4.90); Total Protein 5.7 g/dL (6.4-8.2)
[2021-05-03 08:49] VITALS: BP 100/56
[2021-05-03] MEDS ORDERED: HEPARIN SODIUM (PORCINE) 5000 UNITS/ML 1ML VIAL ONE (09:37)
[2021-05-03] MEDS: Glucerna Carbsteady SHAKE Stawberry 8oz PO SCH ×3 (09:39→17:05)
[2021-05-03] MEDS: levoFLOXacin 500MG 100 ML IV SCH (09:39)
[2021-05-03] MEDS: FAMOTIDINE (10MG/ML) 2ML VL IV SCH (09:39)
[2021-05-03] MEDS: HEPARIN SODIUM (PORCINE) 5000 UNITS/ML 1ML VIAL SC SCH ×2 (09:48→21:56)
[2021-05-03 13:00] VITALS: BP 118/76
[2021-05-03 17:02] VITALS: BP 100/60
[2021-05-03] MEDS: PPN PER PHARMACY IV NR ×8 (19:59)
[2021-05-03 22:00] VITALS: BP 110/68
[2021-05-04] MEDS: PPN PER PHARMACY IV NR ×18 (00:05→19:49)
[2021-05-04] MEDS: ALBUTEROL SULF 2.5 MG/0.5ML(0.5%) NEB SOLN NEB SCH ×4 (00:55→19:26)
[2021-05-04] MEDS: ACETYLCYSTEINE 10 %(100MG/ML) SOL 4ML NEB SCH ×4 (00:55→19:26)
[2021-05-04] MEDS: SOD CHL 0.9%/ KCL 20MEQ 1,000 ML IV SCH ×2 (02:54→21:27)
[2021-05-04 04:56] VITALS: BP 136/67
[2021-05-04] MEDS: ACCU-CHEK COMFORT CURVE STRIP VI SCH ×3 (05:51→18:00)
[2021-05-04] MEDS: InsuLIN REG 1unit/0.01ml Soln (100units/ml) SC SCH ×3 (05:52→18:00)
[2021-05-04 06:05] LABS: Calcium 9.2 mg/dL (8.5-10.1); Magnesium 3.1 mg/dL (1.6-2.6); Potassium 4.2 mmol/L (3.5-5.1)
[2021-05-04 06:10] LABS: BUN/Creatinine Ratio 23.7; Bilirubin, Total 0.3 mg/dL (0.2-1.0); Phosphorus 2.4 mg/dL (2.5-4.90)
[2021-05-04] MEDS: ACETAMINOPHEN 650 mg PER 20.3 mL UD GT PRN (07:55)
[2021-05-04] MEDS: Glucerna Carbsteady SHAKE Stawberry 8oz PO SCH ×3 (08:00→18:00)
[2021-05-04] MEDS ORDERED: SODIUM PHOSP 20MEQ(15MMOL) IN NS 100 ML IV ONE (08:30)
[2021-05-04 09:22] VITALS: BP 114/57
[2021-05-04] MEDS: HEPARIN SODIUM (PORCINE) 5000 UNITS/ML 1ML VIAL SC SCH ×2 (10:22→21:49)
[2021-05-04] MEDS: levoFLOXacin 500MG 100 ML IV SCH (10:23)
[2021-05-04] MEDS: FAMOTIDINE (10MG/ML) 2ML VL IV SCH (10:23)
[2021-05-04] MEDS: ONDANSETRON HCL 4 MG/2 ML VIAL IV PRN (10:39)
[2021-05-04] MEDS: MORPHINE SULFATE INJECTION 2 MG/ML SYRG IV PRN (10:41)
[2021-05-04 12:40] VITALS: BP 81/46
[2021-05-04 16:26] VITALS: BP 86/54
[2021-05-04] MEDS ORDERED: PPN PER PHARMACY IV NR ×8 (20:00)
[2021-05-04 22:00] VITALS: BP 133/68
[2021-05-05] MEDS: ALBUTEROL SULF 2.5 MG/0.5ML(0.5%) NEB SOLN NEB SCH ×5 (00:25→23:50)
[2021-05-05] MEDS: ACETYLCYSTEINE 10 %(100MG/ML) SOL 4ML NEB SCH ×5 (00:25→23:50)
[2021-05-05] MEDS: ACCU-CHEK COMFORT CURVE STRIP VI SCH ×4 (01:28→17:26)
[2021-05-05] MEDS: MORPHINE SULFATE INJECTION 2 MG/ML SYRG IV PRN ×2 (01:29→10:15)
[2021-05-05 05:31] VITALS: BP 116/65
[2021-05-05 05:36] LABS: Albumin 1.9 g/dL (3.4-5.0); Calcium 8.8 mg/dL (8.5-10.1); Magnesium 2.6 mg/dL (1.6-2.6); Potassium 4.1 mmol/L (3.5-5.1)
[2021-05-05 05:39] LABS: BUN/Creatinine Ratio 22.2; Bilirubin, Total 0.4 mg/dL (0.2-1.0); Phosphorus 2.8 mg/dL (2.5-4.90); Total Protein 5.4 g/dL (6.4-8.2)
[2021-05-05] MEDS: InsuLIN REG 1unit/0.01ml Soln (100units/ml) SC SCH ×4 (06:00→17:27)
[2021-05-05] MEDS: Glucerna Carbsteady SHAKE Stawberry 8oz PO SCH ×3 (08:00→17:26)
[2021-05-05 09:00] VITALS: BP 105/62
[2021-05-05] MEDS: FAMOTIDINE (10MG/ML) 2ML VL IV SCH (10:12)
[2021-05-05] MEDS: HEPARIN SODIUM (PORCINE) 5000 UNITS/ML 1ML VIAL SC SCH ×2 (10:14→22:45)
[2021-05-05] MEDS: levoFLOXacin 500MG 100 ML IV SCH (10:14)
[2021-05-05 13:00] VITALS: BP 125/67
[2021-05-05 17:00] VITALS: BP 111/61
[2021-05-05] MEDS: SOD CHL 0.9%/ KCL 20MEQ 1,000 ML IV SCH (20:00)
[2021-05-05] MEDS ORDERED: PPN PER PHARMACY IV NR ×8 (20:00)
[2021-05-05 21:39] VITALS: BP 117/62
[2021-05-06] MEDS: ACCU-CHEK COMFORT CURVE STRIP VI SCH ×4 (00:47→17:27)
[2021-05-06 04:36] VITALS: BP 131/71
[2021-05-06] MEDS: InsuLIN REG 1unit/0.01ml Soln (100units/ml) SC SCH ×4 (05:43→17:25)
[2021-05-06] MEDS: MORPHINE SULFATE INJECTION 2 MG/ML SYRG IV PRN (05:53)
[2021-05-06] MEDS: SOD CHL 0.9%/ KCL 20MEQ 1,000 ML IV SCH (06:33)
[2021-05-06 07:08] LABS: Albumin 2.1 g/dL (3.4-5.0)
[2021-05-06 07:14] LABS: BUN/Creatinine Ratio 19.7; Bilirubin, Total 0.3 mg/dL (0.2-1.0); Calcium 10.1 mg/dL (8.5-10.1); Magnesium 2.7 mg/dL (1.6-2.6); Phosphorus 2.4 mg/dL (2.5-4.90); Total Protein 6.7 g/dL (6.4-8.2)
[2021-05-06] MEDS: ALBUTEROL SULF 2.5 MG/0.5ML(0.5%) NEB SOLN NEB SCH ×3 (07:50→19:52)
[2021-05-06] MEDS: ACETYLCYSTEINE 10 %(100MG/ML) SOL 4ML NEB SCH ×3 (07:50→19:52)
[2021-05-06] MEDS: Glucerna Carbsteady SHAKE Stawberry 8oz PO SCH ×3 (08:00→17:27)
[2021-05-06 09:00] VITALS: BP 120/71
[2021-05-06] MEDS: HEPARIN SODIUM (PORCINE) 5000 UNITS/ML 1ML VIAL SC SCH ×2 (10:00→23:25)
[2021-05-06] MEDS ORDERED: HEPARIN SODIUM (PORCINE) 5000 UNITS/ML 1ML VIAL ONE ×5 (11:48→11:49)
[2021-05-06] MEDS: FAMOTIDINE (10MG/ML) 2ML VL IV SCH (11:55)
[2021-05-06] MEDS: levoFLOXacin 500MG 100 ML IV SCH (11:55)
[2021-05-06 12:39] VITALS: BP 138/80
[2021-05-06 16:49] VITALS: BP 124/73
[2021-05-06] MEDS ORDERED: PPN PER PHARMACY IV NR ×8 (20:00)
[2021-05-06 22:00] VITALS: BP 119/54
[2021-05-07] MEDS: ALBUTEROL SULF 2.5 MG/0.5ML(0.5%) NEB SOLN NEB SCH ×4 (00:26→18:58)
[2021-05-07] MEDS: ACETYLCYSTEINE 10 %(100MG/ML) SOL 4ML NEB SCH ×4 (00:27→18:58)
[2021-05-07] MEDS: ACCU-CHEK COMFORT CURVE STRIP VI SCH ×3 (00:30→18:00)
[2021-05-07] MEDS: InsuLIN REG 1unit/0.01ml Soln (100units/ml) SC SCH ×4 (00:34→18:00)
[2021-05-07] MEDS: MORPHINE SULFATE INJECTION 2 MG/ML SYRG IV PRN (00:50)
[2021-05-07] MEDS: SOD CHL 0.9%/ KCL 20MEQ 1,000 ML IV SCH (00:51)
[2021-05-07 05:00] VITALS: BP 130/75
[2021-05-07 07:06] LABS: Albumin 2.1 g/dL (3.4-5.0); Bilirubin, Total 0.4 mg/dL (0.2-1.0); Magnesium 2.8 mg/dL (1.6-2.6); Phosphorus 2.8 mg/dL (2.5-4.90); Total Protein 5.8 g/dL (6.4-8.2)
[2021-05-07] MEDS: Glucerna Carbsteady SHAKE Stawberry 8oz PO SCH ×3 (08:00→18:00)
[2021-05-07] MEDS ORDERED: HEPARIN SODIUM (PORCINE) 5000 UNITS/ML 1ML VIAL ONE (09:58)
[2021-05-07] MEDS: HEPARIN SODIUM (PORCINE) 5000 UNITS/ML 1ML VIAL SC SCH ×2 (10:00→21:40)
[2021-05-07] MEDS: FAMOTIDINE (10MG/ML) 2ML VL IV SCH (10:00)
[2021-05-07] MEDS: levoFLOXacin 500MG 100 ML IV SCH ×2 (10:00→12:00)
[2021-05-07] MEDS ORDERED: PPN PER PHARMACY IV NR ×9 (20:00)
[2021-05-07 22:18] VITALS: BP 96/56
[2021-05-08] MEDS: ALBUTEROL SULF 2.5 MG/0.5ML(0.5%) NEB SOLN NEB SCH ×4 (00:50→18:52)
[2021-05-08] MEDS: ACETYLCYSTEINE 10 %(100MG/ML) SOL 4ML NEB SCH ×4 (00:50→18:52)
[2021-05-08] MEDS: ACCU-CHEK COMFORT CURVE STRIP VI SCH ×4 (01:17→18:00)
[2021-05-08] MEDS: MORPHINE SULFATE INJECTION 2 MG/ML SYRG IV PRN ×2 (02:19→13:54)
[2021-05-08 05:00] VITALS: BP 123/69
[2021-05-08 05:25] LABS: Calcium 9.8 mg/dL (8.5-10.1); Magnesium 2.4 mg/dL (1.6-2.6); Potassium 3.4 mmol/L (3.5-5.1)
[2021-05-08 05:28] LABS: BUN/Creatinine Ratio 32.8; Bilirubin, Total 0.3 mg/dL (0.2-1.0); Phosphorus 3.4 mg/dL (2.5-4.90); Total Protein 6.5 g/dL (6.4-8.2)
[2021-05-08] MEDS: InsuLIN REG 1unit/0.01ml Soln (100units/ml) SC SCH ×4 (05:44→18:00)
[2021-05-08] MEDS: Glucerna Carbsteady SHAKE Stawberry 8oz PO SCH ×3 (08:00→18:00)
[2021-05-08 08:30] VITALS: BP 138/74
[2021-05-08] MEDS: FAMOTIDINE (10MG/ML) 2ML VL IV SCH (09:22)
[2021-05-08] MEDS: HEPARIN SODIUM (PORCINE) 5000 UNITS/ML 1ML VIAL SC SCH ×2 (09:48→22:00)
[2021-05-08] MEDS: levoFLOXacin 500MG 100 ML IV SCH (12:22)
[2021-05-08 12:41] VITALS: BP 126/68
[2021-05-08] MEDS: POTASSIUM CHL 20MEQ/50ML 50 ML IV SCH ×2 (13:57→15:19)
[2021-05-08 17:00] VITALS: BP 119/65
[2021-05-08] MEDS ORDERED: PPN PER PHARMACY IV NR ×8 (20:00)
[2021-05-08 21:46] VITALS: BP 101/48
[2021-05-09] MEDS: ALBUTEROL SULF 2.5 MG/0.5ML(0.5%) NEB SOLN NEB SCH ×4 (00:18→19:31)
[2021-05-09] MEDS: ACETYLCYSTEINE 10 %(100MG/ML) SOL 4ML NEB SCH ×4 (00:18→19:31)
[2021-05-09] MEDS: InsuLIN REG 1unit/0.01ml Soln (100units/ml) SC SCH ×4 (01:11→18:00)
[2021-05-09] MEDS: ACCU-CHEK COMFORT CURVE STRIP VI SCH ×4 (01:11→18:01)
[2021-05-09] MEDS: MORPHINE SULFATE INJECTION 2 MG/ML SYRG IV PRN ×2 (01:31→09:37)
[2021-05-09 05:20] VITALS: BP 118/65
[2021-05-09 05:26] LABS: Calcium 9.9 mg/dL (8.5-10.1); Potassium 3.9 mmol/L (3.5-5.1)
[2021-05-09 05:32] LABS: BUN/Creatinine Ratio 33.9; Bilirubin, Total 0.3 mg/dL (0.2-1.0); Magnesium 2.5 mg/dL (1.6-2.6); Phosphorus 2.9 mg/dL (2.5-4.90); Total Protein 6.7 g/dL (6.4-8.2)
[2021-05-09] MEDS: Glucerna Carbsteady SHAKE Stawberry 8oz PO SCH ×3 (08:00→18:00)
[2021-05-09] MEDS: ONDANSETRON HCL 4 MG/2 ML VIAL IV PRN (09:33)
[2021-05-09] MEDS: FAMOTIDINE (10MG/ML) 2ML VL IV SCH (09:37)
[2021-05-09 09:54] VITALS: BP 126/72
[2021-05-09] MEDS: HEPARIN SODIUM (PORCINE) 5000 UNITS/ML 1ML VIAL SC SCH ×2 (10:24→21:38)
[2021-05-09] MEDS: levoFLOXacin 500MG 100 ML IV SCH (10:25)
[2021-05-09 12:38] VITALS: BP 99/52
[2021-05-09 16:32] VITALS: BP 105/64
[2021-05-09] MEDS ORDERED: PPN PER PHARMACY IV NR ×8 (20:00)
[2021-05-09 21:20] VITALS: BP 94/52
[2021-05-10] MEDS: ACCU-CHEK COMFORT CURVE STRIP VI SCH ×4 (00:04→18:00)
[2021-05-10] MEDS: ALBUTEROL SULF 2.5 MG/0.5ML(0.5%) NEB SOLN NEB SCH ×4 (01:28→18:55)
[2021-05-10] MEDS: ACETYLCYSTEINE 10 %(100MG/ML) SOL 4ML NEB SCH ×4 (01:28→18:55)
[2021-05-10 05:42] VITALS: BP 93/53
[2021-05-10] MEDS: InsuLIN REG 1unit/0.01ml Soln (100units/ml) SC SCH ×4 (05:43→18:00)
[2021-05-10 06:20] LABS: BUN/Creatinine Ratio 36.9; Bilirubin, Total 0.4 mg/dL (0.2-1.0); Magnesium 2.5 mg/dL (1.6-2.6); Phosphorus 3.1 mg/dL (2.5-4.90); Total Protein 5.9 g/dL (6.4-8.2)
[2021-05-10] MEDS: Glucerna Carbsteady SHAKE Stawberry 8oz PO SCH ×3 (08:00→18:00)
[2021-05-10 09:00] VITALS: BP 90/59
[2021-05-10] MEDS: FAMOTIDINE (10MG/ML) 2ML VL IV SCH (10:10)
[2021-05-10] MEDS: levoFLOXacin 500MG 100 ML IV SCH (10:10)
[2021-05-10] MEDS: HEPARIN SODIUM (PORCINE) 5000 UNITS/ML 1ML VIAL SC SCH ×2 (10:24→21:07)
[2021-05-10] MEDS: MORPHINE SULFATE INJECTION 2 MG/ML SYRG IV PRN (12:09)
[2021-05-10] MEDS: ONDANSETRON HCL 4 MG/2 ML VIAL IV PRN (12:10)
[2021-05-10 13:00] VITALS: BP 111/72
[2021-05-10 17:00] VITALS: BP 104/66
[2021-05-10] MEDS ORDERED: PPN PER PHARMACY IV NR ×9 (20:00)
[2021-05-10 22:00] VITALS: BP 93/62
[2021-05-11] MEDS: InsuLIN REG 1unit/0.01ml Soln (100units/ml) SC SCH ×4 (01:14→18:00)
[2021-05-11] MEDS: ACCU-CHEK COMFORT CURVE STRIP VI SCH ×3 (01:15→12:00)
[2021-05-11] MEDS: ALBUTEROL SULF 2.5 MG/0.5ML(0.5%) NEB SOLN NEB SCH ×5 (02:18→23:24)
[2021-05-11] MEDS: ACETYLCYSTEINE 10 %(100MG/ML) SOL 4ML NEB SCH ×5 (02:18→23:24)
[2021-05-11 05:00] VITALS: BP 123/60
[2021-05-11] MEDS: MORPHINE SULFATE INJECTION 2 MG/ML SYRG IV PRN (05:29)
[2021-05-11 06:27] LABS: Basophils # (auto) 0.1 10 ^3/uL (0-0.2); Basophils % (auto) 0.5 % (0.0-2.0); Eosinophils # (auto) 0.3 10 ^3/uL (0-0.8); Eosinophils % (auto) 1.8 % (0.0-7.0); Hematocrit 30.5 % (41.0-53.0); Hemoglobin 9.9 g/dL (13.5-17.5); Lymphocytes # (auto) 0.7 10 ^3/uL (0.4-5.4); Lymphocytes % (auto) 4.7 % (10.0-50.0); Mean Corpuscular Hemoglobin 27.3 pg (28.0-32.0); Mean Corpuscular Hgb Conc. 32.4 g/dL (32.0-36.0); Mean Corpuscular Volume 84.3 fL (80.0-100.0); Monocytes # (auto) 1.3 10 ^3/uL (0-1.3); Monocytes % (auto) 8.8 % (0.0-12.0); Neutrophils # (auto) 12.2 10 ^3/uL (1.6-8.6); Neutrophils % (auto) 84.2 % (37.0-80.0); Red Blood Cells 3.62 10^6/uL (4.5-5.90); Red Cell Distribution Width 16.9 % (11.8-14.3); White Blood Cell 14.4 10^3/uL (4.4-10.8)
[2021-05-11 06:33] LABS: Potassium 3.3 mmol/L (3.5-5.1)
[2021-05-11 06:40] LABS: Albumin 1.9 g/dL (3.4-5.0); BUN/Creatinine Ratio 38.1; Bilirubin, Total 0.3 mg/dL (0.2-1.0); Calcium 10.2 mg/dL (8.5-10.1); Magnesium 2.4 mg/dL (1.6-2.6); Phosphorus 2.7 mg/dL (2.5-4.90); Total Protein 6.4 g/dL (6.4-8.2)
[2021-05-11] MEDS: Glucerna Carbsteady SHAKE Stawberry 8oz PO SCH ×2 (08:00→12:00)
[2021-05-11] MEDS ORDERED: MORPHINE SULFATE 10 MG/5 ML ORAL SOLN GT PRN ×2 (09:15→09:30)
[2021-05-11] MEDS: POTASSIUM CHL 20MEQ/50ML 50 ML IV SCH ×2 (09:29→13:03)
[2021-05-11] MEDS: FAMOTIDINE (10MG/ML) 2ML VL IV SCH (09:29)
[2021-05-11 09:30] VITALS: BP 103/65
[2021-05-11] MEDS: HEPARIN SODIUM (PORCINE) 5000 UNITS/ML 1ML VIAL SC SCH ×2 (10:00→22:22)
[2021-05-11] MEDS: levoFLOXacin 500MG 100 ML IV SCH (10:48)
[2021-05-11 12:27] VITALS: BP 118/63
[2021-05-11 16:22] VITALS: BP 87/47
[2021-05-11] MEDS ORDERED: PPN PER PHARMACY IV NR ×8 (20:00)
[2021-05-11 22:00] VITALS: BP 88/46
[2021-05-12 05:00] VITALS: BP 129/68
[2021-05-12 06:18] LABS: Albumin 2.1 g/dL (3.4-5.0); Calcium 11.1 mg/dL (8.5-10.1); Potassium 3.9 mmol/L (3.5-5.1)
[2021-05-12 06:22] LABS: BUN/Creatinine Ratio 26.3; Bilirubin, Total 0.5 mg/dL (0.2-1.0); Total Protein 6.3 g/dL (6.4-8.2)
[2021-05-12] MEDS: ALBUTEROL SULF 2.5 MG/0.5ML(0.5%) NEB SOLN NEB SCH ×2 (07:26→13:06)
[2021-05-12] MEDS: ACETYLCYSTEINE 10 %(100MG/ML) SOL 4ML NEB SCH ×2 (07:26→13:06)
[2021-05-12 08:32] VITALS: BP 121/71
[2021-05-12] MEDS: HEPARIN SODIUM (PORCINE) 5000 UNITS/ML 1ML VIAL SC SCH (10:00)
[2021-05-12] MEDS: FAMOTIDINE (10MG/ML) 2ML VL IV SCH (10:00)
[2021-05-12 13:08] VITALS: BP 117/56
[2021-05-12 17:15] VITALS: BP 86/53
== END 2021-05-12 18:46 | disposition hospice, home (50) | DRG 720 ==
LOC: ER 14:03 → OVERFLOW 14:04 → CENTRAL 04-24 12:09
PROVIDERS: ADMIT Nurse Practitioner Family; ATTEND Internal Medicine
PROC: 05HC33Z Insertion of Infusion Device into Left Basilic Vein, Percutaneous Approach (ICD-10-PCS; principal; 2021-04-29)
PROC: B54NZZA Ultrasonography of Left Upper Extremity Veins, Guidance (ICD-10-PCS; 2021-04-29)
DX: A41.52 Sepsis due to Pseudomonas (principal); N17.9 Acute kidney failure, unspecified; E43 Unspecified severe protein-calorie malnutrition; E88.09 Other disorders of plasma-protein metabolism, not elsewhere classified; D75.839 Thrombocytosis, unspecified; E11.9 Type 2 diabetes mellitus without complications; E78.5 Hyperlipidemia, unspecified; B96.20 Unspecified Escherichia coli [E. coli] as the cause of diseases classified elsewhere; E83.52 Hypercalcemia; I10 Essential (primary) hypertension; M19.90 Unspecified osteoarthritis, unspecified site; Z20.822 Contact with and (suspected) exposure to COVID-19; H91.90 Unspecified hearing loss, unspecified ear; K21.9 Gastro-esophageal reflux disease without esophagitis; J32.0 Chronic maxillary sinusitis; E86.0 Dehydration; E87.6 Hypokalemia; R13.10 Dysphagia, unspecified; Z85.819 Personal history of malignant neoplasm of unspecified site of lip, oral cavity, and pharynx; Z85.89 Personal history of malignant neoplasm of other organs and systems; Z51.5 Encounter for palliative care; Z92.21 Personal history of antineoplastic chemotherapy; Z68.22 Body mass index [BMI] 22.0-22.9, adult
CPT/HCPCS: 10022; 36415; 70460; 70486; 70491; 71045; 77012; 80048; 80053; 80076; 81001; 82040; 82962; 83036; 83735; 84100; 84478; 84484; 85025; 85610; 85730; 87040; 87077; 87186; 87205; 87426; 93005; 94640; 96361; 96365; G0378; J0696; J1815; J1956; J2001; J2250; J2405; J3490; J7060; J7131